=== PATIENT | male | born 1975 | race Native Hawaiian/Other Pacific Islander ===

== ENCOUNTER 2020-06-12 00:40 | Emergency (ER) | payer OTHER ==
--- NOTE | 2020-06-12 02:00 | CT ---
EXAM: CT Head Without Intravenous Contrast CLINICAL HISTORY: ITS.REASON CT Reason: nighttime headaches TECHNIQUE: Axial computed tomography images of the head/brain without intravenous contrast. CTDI is 49.27 mGy and DLP is 1086.40 mGy-cm. This CT exam was performed using one or more of the following dose reduction techniques: automated exposure control, adjustment of the mA and/or kV according to patient size, and/or use of iterative reconstruction technique. COMPARISON: No relevant prior studies available. FINDINGS: Brain: No hemorrhage or mass effect. Ventricles: No hydrocephalus. Bones/joints: Chronic nasal bone fracture. Soft tissues: Unremarkable. Sinuses: Air fluid level in the right maxillary and bilateral frontal sinus. Mild mucosal thickening of the ethmoid and sphenoid sinus. Mastoid air cells: Clear. IMPRESSION: 1. No acute hemorrhage, hydrocephalus, or mass effect. 2. Air-fluid levels in the frontal and right maxillary sinus. Correlate with sinusitis.
[2020-06-12] MEDS ORDERED: HYDROmorphone 0.5 MG/0.5 ML SYRINGE IVP STA (02:02)
[2020-06-12] MEDS ORDERED: ONDANSETRON 4 MG/2 ML VIAL IVP STA (02:02)
[2020-06-12] MEDS ORDERED: diphenhydrAMINE 50 MG/ML 1 ML VIAL IVP STA (02:02)
--- NOTE | 2020-06-12 02:14 | ED ---
Headache HPI - General Chief Complaint: Headache Stated Complaint: Headache Time Seen by Provider: 06/12/20 00:48 Mode of arrival: ambulatory Limitations: no limitations - History of Present Illness Initial Comments: 45-year-old male presenting today for headache. Patient states had increasing headaches for the past 3 weeks at night. Patient denies any strokelike symptoms including facial asymmetry speech changes diplopia or visual loss sensation deficits or inequalities, weakness of the upper or lower extremities. Patient denies dizziness fevers neck stiffness he denies sudden onset of headache he states typically wakes up at night with him. Patient states there is throbbing on the right side of his head. Patient denies any neck pain. Patient denies any recent head injuries or trauma. Patient denies feeling off balance. Patient denies any upper respiratory symptoms or additional complaints upon arrival patient appears well nontoxic no acute distress headache currently 04/02 - Related Data Previous Rx's Medication Instructions Recorded Doxycycline Hyclate 100 mg PO BID 1 Days #14 tab 06/12/20 methylPREDNISolone [Medrol Dose 4 mg PO DIRECTED #1 pack 06/12/20 Pack] Allergies Allergy/AdvReac Type Severity Reaction Status Date / Time amoxicillin Allergy Rash/Hives Verified 06/12/20 16:53 aspirin Allergy Rash/Hives Verified 06/12/20 16:53 ibuprofen [From Motrin] Allergy Rash/Hives Verified 06/12/20 16:53 Review of Systems ROS Statement: Those systems with pertinent positive or pertinent negative responses have been documented in the HPI. ROS Other: All systems not noted in ROS Statement are negative. Past Medical History Past Medical History: No Reported History History of Any Multi-Drug Resistant Organisms: None Reported Past Surgical History: No Surgical Hx Reported Past Psychological History: No Psychological Hx Reported Smoking Status: Never smoker Past Alcohol Use History: Occasional Past Drug Use History: None Reported General Exam - General Exam Comments Initial Comments: General: The patient is awake and alert, in no distress Eye: +3 mm pupils are equal, round and reactive to light, extra-ocular movements are intact. No nystagmus. There is normal conjunctiva bilaterally. No signs of icterus. Ears, nose, mouth and throat: There are moist mucous membranes and no oral lesions. Neck: The neck is supple, there is no tenderness or JVD. No nuchal rigidity Cardiovascular: There is a regular rate and rhythm. No murmur, rub or gallop is appreciated. Respiratory: Lungs are clear to auscultation, respirations are non-labored, breath sounds are equal. No wheezes, stridor, rales, or rhonchi. Gastrointestinal: Soft, non-distended, non-tender abdomen without masses or organomegaly noted. There is no rebound or guarding present. Musculoskeletal: Normal ROM, no tenderness. Strength 5/5 of the UE and LE b/l. Sensation intact of the UE and LE b/l. Radial pulses equal bilaterally 2+. Neurological: A&O x 3. CN II-XII intact, There are no obvious motor or sensory deficits. Coordination appears grossly intact. Speech is normal.Gait WNL. no pronator drift. Skin: Skin is warm and dry and no rashes or lesions are noted. Psychiatric: Cooperative, appropriate mood & affect, normal judgment. Limitations: no limitations Course Vital Signs 06/12/20 06/12/20 06/12/20 00:41 02:00 03:02 Temperature 99.2 F 98.4 F Pulse Rate 85 68 98 Respiratory 20 18 18 Rate Blood Pressure 165/98 135/92 131/82 O2 Sat by Pulse 100 99 99 Oximetry Medical Decision Making - Medical Decision Making 45yo male presenting today for cc of headache at night x [address] (-). No focal deficits. Patient denies fever, neck stiffness. Denies this being worst headache of her life, or sudden onset of headache. Pt pain controlled in ER, he is agreeable to discharge with PCP f/u. Recommend outpatient MRI. Patient is aware of return parameters as they were discussed. Case discussed with Dr. Leo who is agreeable to care plan and discharge. Disposition Clinical Impression: Headache Disposition: HOME SELF-CARE Condition: Good Instructions (If sedation given, give patient instructions): Acute Headache (ED) Additional Instructions: Please use medication as discussed. Please follow-up with family doctor in the next 2 days, recommend outpatient MRI, return for worsening symptoms. Please return to emergency room if the symptoms increase or worsen or for any other concerns. Is patient prescribed a controlled substance at d/c from ED?: No Referrals: None,Stated [Primary Care Provider] - 1-2 days Giovanny Sanders DO [STAFF PHYSICIAN] - 1-2 days Nory Keller MD [REFERRING] - 1-2 days Franchesca Soriano MD [Medical Doctor] - 1-2 days Time of Disposition: 02:37
[2020-06-12 02:17] VITALS: RESP 18
[2020-06-12 03:05] VITALS: BP 131/82; PULSE 98; TEMP 98.4
== END 2020-06-12 03:05 | disposition home or self-care (01) ==
LOC: EC 00:40
DX: R51.9 Headache, unspecified (principal); Z88.0 Allergy status to penicillin; Z88.6 Allergy status to analgesic agent
CPT/HCPCS: 70450; 99284; 96374; 96375 ×2; J1200; J2405; J1170

== ENCOUNTER 2020-06-12 16:52 | Emergency (ER) | payer OTHER ==
[2020-06-12 16:56] VITALS: BP 146/93; PULSE 84; RESP 18; TEMP 98.9
[2020-06-12] MEDS ORDERED: AZITHROMYCIN 500 MG TAB PO STA (17:12)
[2020-06-12] MEDS ORDERED: ACET/COD 300 MG/30 MG STARTER PACK 6 TAB BTL PO STA (17:12)
[2020-06-12] MEDS ORDERED: DEXAMETHASONE SOD PHOSPHATE 10 MG/ML 1 ML VIAL IM STA (17:12)
--- NOTE | 2020-06-12 17:14 | ED ---
General Adult HPI - General Chief complaint: Headache Stated complaint: headache/cough/wheezing Time Seen by Provider: 06/12/20 17:04 Source: patient Mode of arrival: ambulatory Limitations: no limitations - History of Present Illness Initial comments: 45 year-old male patient presents to the emergency department today for evaluation of right-sided headache. Patient states that he has had a headache on and off for the last 3 weeks. States that it occurs several times throughout the day last 2-3 hours at a time. States he has been taking Tylenol with minimal relief. States that he was seen and evaluated here yesterday and had computed tomography scan of the brain which was negative. He was discharged and instructed to follow-up with neurology. Patient states his headache returned last night and into today so went to urgent care and they recommended he return here for further evaluation. Patient states with onset of the headaches he did have onset of nasal congestion as well. Patient states he feels a lot of pressure and nasal congestion especially on the right side. He reports mild cough. Denies history of smoking. Denies fever or chills. Patient denies any recent rash, cough, shortness of breath, chest pain, abdominal pain, nausea, vomiting, diarrhea, constipation, back pain, numbness, tingling, dizziness, weakness, hematuria, dysuria, urinary urgency, urinary frequency, or any other complaints. - Related Data Previous Rx's Medication Instructions Recorded Doxycycline Hyclate 100 mg PO BID 1 Days #14 tab 06/12/20 methylPREDNISolone [Medrol Dose 4 mg PO DIRECTED #1 pack 06/12/20 Pack] Allergies Allergy/AdvReac Type Severity Reaction Status Date / Time amoxicillin Allergy Rash/Hives Verified 06/12/20 16:53 aspirin Allergy Rash/Hives Verified 06/12/20 16:53 ibuprofen [From Motrin] Allergy Rash/Hives Verified 06/12/20 16:53 Review of Systems ROS Statement: Those systems with pertinent positive or pertinent negative responses have been documented in the HPI. ROS Other: All systems not noted in ROS Statement are negative. Past Medical History Past Medical History: No Reported History History of Any Multi-Drug Resistant Organisms: None Reported Past Surgical History: No Surgical Hx Reported Past Psychological History: No Psychological Hx Reported Smoking Status: Never smoker Past Alcohol Use History: Occasional Past Drug Use History: None Reported General Exam Limitations: no limitations General appearance: alert, in no apparent distress, other (Physical well- developed, well-nourished adult male patient in no acute distress. Vital signs upon presentation are temperature 98.9F, pulse 84, resp 18, BP 146/93, SpO2 97%.) Respiratory exam: Present: normal lung sounds bilaterally. Absent: respiratory distress, wheezes, rales, rhonchi, stridor Cardiovascular Exam: Present: regular rate, normal rhythm, normal heart sounds. Absent: systolic murmur, diastolic murmur, rubs, gallop, clicks GI/Abdominal exam: Present: soft, normal bowel sounds. Absent: distended, tenderness, guarding, rebound, rigid Neurological exam: Present: alert, oriented X3, CN II-XII intact Expanded Speech: Present: fluid speech Cranial nerves: EOM's Intact: Normal, Tongue Deviation: Normal Cerebellar function: Finger to Nose: Normal Motor strength exam: RUE: 5, LUE: 5, RLE: 5, LLE: 5 Eye Response: (4) open spontaneously Motor Response: (6) obeys commands Verbal Response: (5) oriented [place] Total: 15 Psychiatric exam: Present: normal affect, normal mood Skin exam: Present: warm, dry, intact, normal color. Absent: rash Course Vital Signs 06/12/20 16:53 Temperature 98.9 F Pulse Rate 84 Respiratory 18 Rate Blood Pressure 146/93 O2 Sat by Pulse 97 Oximetry Medical Decision Making - Medical Decision Making 45 year-old male patient presents to the emergency department today for evaluation of headache and sinus congestion. He was in the emergency department last night had CT brain which was negative for any intracranial abdomen did show evidence for right-sided sinusitis. Physical examination did reveal right frontal and right maxillary sinus tenderness. He is neurologically intact with no focal deficits. No recent head injury. We will treat for sinusitis. Discharged with instructions to follow-up with neurology if his symptoms do not improve with treatment. He did receive a list with phone numbers at yesterday's visit. He is instructed to follow-up with his primary care physician for recheck in 1-2 days. Return parameters were discussed in detail. He verbalizes understanding and agrees with this plan. Disposition Clinical Impression: Sinusitis, Headache Disposition: HOME SELF-CARE Condition: Good Instructions (If sedation given, give patient instructions): Sinusitis (ED), Acute Headache (ED) Additional Instructions: Take medications as directed. Follow up with primary care physician and neurologist as soon as possible. Return to the emergency department for any new, worsening, or concerning symptoms. Prescriptions: Doxycycline Hyclate 100 mg PO BID 1 Days #14 tab methylPREDNISolone [Medrol Dose Pack] 4 mg PO DIRECTED #1 pack Is patient prescribed a controlled substance at d/c from ED?: No Referrals: None,Stated [Primary Care Provider] - 1-2 days Time of Disposition: 17:14
[2020-06-12] MEDS ORDERED: DOXYCYCLINE 100 MG CAP PO STA (17:36)
== END 2020-06-12 17:52 | disposition home or self-care (01) ==
LOC: EC 16:52
DX: J32.9 Chronic sinusitis, unspecified (principal); R51.9 Headache, unspecified; Z88.0 Allergy status to penicillin; Z88.6 Allergy status to analgesic agent
CPT/HCPCS: 99283; 96372; J1100